=== PATIENT | male | born 1975 | race African-American/Black ===

== ENCOUNTER 2018-02-17 13:55 | Emergency (ER) | payer SELFPAY ==
[2018-02-17] MEDS ORDERED: Losartan 50 MG Tab PO ONE (14:25)
--- NOTE | 2018-02-17 14:28 | EDM.PDOC ---
ED HPI GENERAL MEDICAL PROBLEM - General Chief Complaint: General Stated Complaint: HIGH BP Time Seen by Provider: 02/17/18 14:24 Source of Information: Reports: Patient History Limitations: Reports: No Limitations - History of Present Illness INITIAL COMMENTS - FREE TEXT/NARRATIVE: HISTORY AND PHYSICAL: History of present illness: Patient is a 42-year-old -Al[place] male here with complaint of high blood pressure. He states he recently moved here from [place] and was having a physical done at [employer] for work and found to have elevated BP. He has a history of hypertension and is normally on losartan/hydrochlorothiazide but has been home for about 2 weeks. He denies any chest pain, shortness of breath, blurry vision, dizziness, lightheadedness, headache, and abdominal pain. Review of systems: As per history of present illness and below otherwise all systems reviewed and negative. Past medical history: As per history of present illness and as reviewed below otherwise noncontributory. Surgical history: As per history of present illness and as reviewed below otherwise noncontributory. Social history: No reported history of drug or alcohol abuse. Family history: As per history of present illness and as reviewed below otherwise noncontributory. Physical exam: General: Patient sitting comfortably in no acute distress and nontoxic appearing HEENT: Atraumatic, normocephalic, pupils reactive, negative for conjunctival pallor or scleral icterus, mucous membranes moist, throat clear, neck supple, nontender, trachea midline. No meningeal signs. Lungs: Clear to auscultation, breath sounds equal bilaterally, chest nontender. Heart: S1S2, regular, negative for clicks, rubs, or overt murmur. Abdomen: Soft, nondistended, nontender. Negative for masses or hepatosplenomegaly. Negative for costovertebral tenderness. Pelvis: Stable nontender. Genitourinary: Deferred. Rectal: Deferred. Extremities: Atraumatic, negative for cords or calf pain. Neurovascular unremarkable. Neuro: Awake, alert, oriented. Cranial nerves II through XII unremarkable. Cerebellum unremarkable. Motor and sensory unremarkable throughout. Exam nonfocal. Notes: Diagnostics: CBC, CMP, troponin, EKG Therapeutics: Losartan/HCTZ 50-12.5mg PO Clonidine 0.2 mg PO Labetolol 20mg IV Prescriptions: Losartan/HCTZ Impression: Hypertension Plan: 1. Take medication as instructed 2. Follow up with primary care provider, please call to schedule an appointment 3. Return to ED as needed as discussed Definitive disposition and diagnosis as appropriate pending reevaluation and review of above. - Related Data Allergies Allergy/AdvReac Type Severity Reaction Status Date / Time No Known Allergies Allergy Verified 02/17/18 14:11 Home Meds: Home Meds Losartan/Hydrochlorothiazide [Losartan-HCTZ 50-12.5 MG] 1 each PO DAILY #15 tablet 02/17/18 [Rx] Past Medical History - Past Health History Medical/Surgical History: Denies Medical/Surgical History Cardiovascular History: Reports: Hypertension Social & Family History - Family History Family Medical History: Noncontributory - Tobacco Use Smoking Status *Q: Light Tobacco Smoker Years of Tobacco use: 20 Packs/Tins Daily: 0.5 - Recreational Drug Use Recreational Drug Use: No ED ROS GENERAL - Review of Systems Review Of Systems: ROS reveals no pertinent complaints other than HPI. ED EXAM, GENERAL - Physical Exam Exam: See Below (see dictation) Course - Vital Signs Last Recorded V/S: Last Vital Signs Temp 98.6 F 02/17/18 17:07 Pulse 63 02/17/18 17:49 Resp 16 02/17/18 17:26 BP 178/126 H 02/17/18 17:49 Pulse Ox 95 02/17/18 17:49 - Orders/Labs/Meds Orders: Active Orders 24 hr Category Date Time Status EKG Documentation Completion [RC] STAT Care 02/17/18 14:24 Active EKG Documentation Completion [RC] STAT Care 02/17/18 17:30 Active Labs: Laboratory Tests 02/17/18 02/17/18 02/17/18 Range/Units 14:32 14:38 14:38 WBC 4.98 (4.0-11.0) K/uL RBC 4.91 (4.50-5.90) M/uL Hgb 13.4 (13.0-17.0) g/dL Hct 40.2 (38.0-50.0) % MCV 81.9 (80.0-98.0) fL MCH 27.3 (27.0-32.0) pg MCHC 33.3 (31.0-37.0) g/dL RDW Std Deviation 43.1 (28.0-62.0) fl RDW Coeff of Nomi 15 (11.0-15.0) % Plt Count 272 (150-400) K/uL MPV 9.50 (7.40-12.00) fL Neut % (Auto) 48.4 (48.0-80.0) % Lymph % (Auto) 43.0 H (16.0-40.0) % Roberts % (Auto) 7.4 (0.0-15.0) % Eos % (Auto) 1.0 (0.0-7.0) % Baso % (Auto) 0.2 (0.0-1.5) % Neut # (Auto) 2.4 (1.4-5.7) K/uL Lymph # (Auto) 2.1 (0.6-2.4) K/uL Roberts # (Auto) 0.4 (0.0-0.8) K/uL Eos # (Auto) 0.1 (0.0-0.7) K/uL Baso # (Auto) 0.0 (0.0-0.1) K/uL Nucleated RBC % 0.0 /100WBC Nucleated RBCs # 0 K/uL Sodium 138 (136-148) mmol/L Potassium 3.8 (3.5-5.1) mmol/L Chloride 102 (98-107) mmol/L Carbon Dioxide 26.8 (21.0-32.0) mmol/L BUN 16 (7.0-18.0) mg/dL Creatinine 1.6 H (0.8-1.3) mg/dL Est Cr Clr Drug Dosing 63.40 mL/min Estimated GFR (MDRD) 57.5 ml/min Glucose 96 (74-106) mg/dL Calcium 9.7 (8.5-10.1) mg/dL Total Bilirubin 0.4 (0.2-1.0) mg/dL AST 13 L (15-37) IU/L ALT 23 (14-63) IU/L Alkaline Phosphatase 75 (46-116) U/L Troponin I < 0.050 (0.000-0.056) ng/mL Total Protein 8.0 (6.4-8.2) g/dL Albumin 3.8 (3.4-5.0) g/dL Globulin 4.2 H (2.6-4.0) g/dL Albumin/Globulin Ratio 0.9 (0.9-1.6) Urine Color YELLOW Urine Appearance CLEAR Urine pH 6.0 (5.0-8.0) Ur Specific [place] 1.010 (1.001-1.035) Urine Protein NEGATIVE (NEGATIVE) mg/dL Urine Glucose (UA) NEGATIVE (NEGATIVE) mg/dL Urine Ketones NEGATIVE (NEGATIVE) mg/dL Urine Occult Blood NEGATIVE (NEGATIVE) Urine Nitrite NEGATIVE (NEGATIVE) Urine Bilirubin NEGATIVE (NEGATIVE) Urine Urobilinogen 0.2 (<2.0) EU/dL Ur Leukocyte Esterase NEGATIVE (NEGATIVE) Urine RBC NONE SEEN (0-2/HPF) Urine WBC 0-1 (0-5/HPF) Ur Epithelial Cells NOT SEEN (NONE-FEW) Urine Bacteria RARE (NEGATIVE) Meds: Medications Discontinued Medications Generic Name Dose Route Start Last Admin Trade Name Freq PRN Reason Stop Dose Admin Clonidine HCl 0.1 mg 02/17/18 15:39 02/17/18 15:45 Catapres PO 02/17/18 15:40 0.1 mg ONETIME ONE Administration Clonidine HCl 0.1 mg 02/17/18 16:02 02/17/18 16:25 Catapres PO 02/17/18 16:03 0.1 mg ONETIME ONE Administration HCTZ/Losartan Potassium 1 tab 02/18/18 09:00 Hyzaar 50-12.5 Mg PO DAILY BRENT HCTZ/Losartan Potassium 1 tab 02/17/18 14:33 02/17/18 14:47 Hyzaar 50-12.5 Mg PO 02/17/18 14:34 1 tab NOW STA Administration Labetalol HCl 20 mg 02/17/18 16:18 02/17/18 16:53 Normodyne IVPUSH 02/17/18 16:19 20 mg NOW ONE Administration Protocol Losartan Potassium 50 mg 02/17/18 14:25 02/17/18 14:59 Cozaar PO 02/17/18 14:26 Not Given ONETIME ONE Departure - Departure Time of Disposition: 17:54 Disposition: Home, Self-Care 01 Condition: Good Clinical Impression: Hypertension - Discharge Information Prescriptions: Losartan/Hydrochlorothiazide [Losartan-HCTZ 50-12.5 MG] 1 each PO DAILY #15 tablet Referrals: PCP,None [Primary Care Provider] - Forms: ED Department Discharge Additional Instructions: The following information is given to patients seen in the emergency department who are being discharged to home. This information is to outline your options for follow-up care. We provide all patients seen in our emergency department with a follow-up referral. The need for follow-up, as well as the timing and circumstances, are variable depending upon the specifics of your emergency department visit. If you don't have a primary care physician on staff, we will provide you with a referral. We always advise you to contact your personal physician following an emergency department visit to inform them of the circumstance of the visit and for follow-up with them and/or the need for any referrals to a consulting specialist. The emergency department will also refer you to a specialist when appropriate. This referral assures that you have the opportunity for follow-up care with a specialist. All of these measure are taken in an effort to provide you with optimal care, which includes your follow-up. Under all circumstances we always encourage you to contact your private physician who remains a resource for coordinating your care. When calling for follow-up care, please make the office aware that this follow-up is from your recent emergency room visit. If for any reason you are refused follow-up, please contact the [facility] Emergency Department at and asked to speak to the emergency department charge nurse. [facility] [address] [place] [id number] [place] [address] 1. Take medication as instructed 2. Follow up with primary care provider, please call to schedule an appointment 3. Return to ED as needed as discussed - My Orders Last 24 Hours: My Active Orders 02/17/18 14:24 EKG Documentation Completion [RC] STAT 02/17/18 17:30 EKG Documentation Completion [RC] STAT - Assessment/Plan Last 24 Hours: My Active Orders 02/17/18 14:24 EKG Documentation Completion [RC] STAT 02/17/18 17:30 EKG Documentation Completion [RC] STAT
[2018-02-17] MEDS ORDERED: Hydrochlorothiazide/Losartan 12.5-50 mg Tab PO STA (14:33)
[2018-02-17 15:18] LABS: CHLORIDE,CL 102 mmol/L (98-107); SODIUM,NA 138 mmol/L (136-148)
[2018-02-17] MEDS ORDERED: cloNIDine 0.1 MG Tab PO ONE ×2 (15:39→16:02)
[2018-02-17] MEDS ORDERED: Labetalol 20 MG/4 ML Syringe IVPUSH ONE (16:18)
[2018-02-18] MEDS ORDERED: Hydrochlorothiazide/Losartan 12.5-50 mg Tab PO SCH (09:00)
== END 2018-02-17 18:06 | disposition home or self-care (01) ==
LOC: MW.ED 13:55
DX: I10 Essential (primary) hypertension (principal); F17.210 Nicotine dependence, cigarettes, uncomplicated
CPT/HCPCS: 36415; 80053; 81001; 84484; 85025; 93005; 99284; A9270; J3490